=== PATIENT | male | born 1965 | race Two or more races ===

== ENCOUNTER 2024-05-20 14:12 | Emergency (ER) | payer SELFPAY ==
[~2024-05-20] VITALS: Ht 170.2 cm; Wt 83.6 kg
[2024-05-20 18:32] LABS: APPEARANCE,URINE CLEAR (CLEAR); BILIRUBIN,URINE NEGATIVE (NEGATIVE); COLOR,URINE LIGHT YELLOW (YELLOW); GLUCOSE, URINE (UA) 150-200 mg/dL (NEGATIVE); KETONES,URINE NEGATIVE (NEGATIVE); LEUKOCYTE ESTERASE ,URINE NEGATIVE (NEGATIVE); NITRATE,URINE NEGATIVE (NEGATIVE); OCCULT BLOOD,URINE NEGATIVE (NEGATIVE); PH,URINE 6.5 (5.0-8.0); PROTEIN,URINE NEGATIVE (NEGATIVE); SPECIFIC GRAVITIY, URINE 1.023 (1.003-1.030); UROBILINOGEN,URINE <=1.0 mg/dL (<=1.0)
[2024-05-20 18:50] LABS: BACTERIA,URINE Rare /HPF (None Seen); RBC,URINE 0-2 /HPF (0-2); SQUAMOUS EPITHELIAL CELL,UR Rare /LPF (None Seen); WBC,URINE 0-2 /HPF (0-5)
[2024-05-20] MEDS ORDERED: DOXY-354 PO (19:25)
[2024-05-20 19:29] VITALS: BP 129/71; PULSE 65; RESP 15; TEMP 97.3; O2SAT 99
== END 2024-05-20 19:34 | disposition home or self-care (01) ==
LOC: EMS 14:18
DX: N50.811 Right testicular pain (principal); N50.812 Left testicular pain; E78.00 Pure hypercholesterolemia, unspecified
CPT/HCPCS: 76870; 81001; 99284; Z7502